=== PATIENT | male | born 1990 | race African-American/Black ===

== ENCOUNTER 2016-08-10 17:12 | Emergency (ER) | payer SELFPAY ==
[~2016-08-10] VITALS: Ht 167.6 cm; Wt 63.5 kg
[2016-08-10 17:41] VITALS: BP 121/72
== END 2016-08-10 21:00 | disposition left against medical advice (07) ==
LOC: ER 17:25
DX: M25.552 Pain in left hip (principal); Z53.21 Procedure and treatment not carried out due to patient leaving prior to being seen by health care provider; V09.9XXA Pedestrian injured in unspecified transport accident, initial encounter; Y93.01 Activity, walking, marching and hiking; Y99.8 Other external cause status; Y92.89 Other specified places as the place of occurrence of the external cause
CPT/HCPCS: 73502